=== PATIENT | male | born 1995 | race Native Hawaiian/Other Pacific Islander ===

== ENCOUNTER 2016-12-15 20:30 | Emergency (ER) | payer OTHER ==
[2016-12-15 20:38] VITALS: BP 147/85; RESP 18; TEMP 98.3; O2SAT 100
--- NOTE | 2016-12-16 00:15 | ED PDOC ---
Lower Extremity Pain/Injury Time Seen by Provider: 12/15/16 21:27 Chief Complaint (Nursing): Lower Extremity Problem/Injury Chief Complaint (Provider): knee pain Additional Complaint(s): pt arrives for eval of right knee pain x1 week. Pt states he injured knee approximately one week ago and was seen in urgent care; told to f/u with ortho specialist; has not done so. Past Medical History Reviewed: Historical Data, Nursing Documentation, Vital Signs Vital Signs: Last Vital Signs Temp 98.3 F 12/15/16 20:35 Pulse 99 H 12/15/16 20:35 Resp 18 12/15/16 20:35 BP 147/85 12/15/16 20:35 Pulse Ox 100 12/15/16 20:35 - Medical History PMH: No Chronic Diseases - Family History Family History: States: No Known Family Hx - Social History Current smoker - smoking cessation education provided: No Alcohol: None Drugs: Denies - Allergies Allergies/Adverse Reactions: Allergies Allergy/AdvReac Type Severity Reaction Status Date / Time No Known Allergies Allergy Verified 12/15/16 20:35 Review of Systems ROS Statement: Except As Marked, All Systems Reviewed And Found Negative Musculoskeletal: Positive for: Leg Pain Physical Exam - Reviewed Nursing Documentation Reviewed: Yes Vital Signs Reviewed: Yes - Physical Exam Appears: Positive for: Well, Non-toxic, No Acute Distress Skin: Positive for: Normal Color, Warm, DRY Extremity: Positive for: Other (R knee nontender. painful ROM at 170, 100. no errythema, warmth, effusion, laxity. n/v intact distally. ambulates w/ pain. ) Neurologic/Psych: Positive for: Alert, Oriented. Negative for: Motor/Sensory Deficits - ECG O2 Sat by Pulse Oximetry: 100 Medical Decision Making Medical Decision Making: pt to f/u ortho as planned. Disposition - Clinical Impression Clinical Impression: Knee sprain - Patient ED Disposition Is Patient to be Admitted: No - Disposition Referrals: [facility] [Outside] Disposition: Routine/Home Disposition Time: 00:15 Condition: GOOD Additional Instructions: f/u ortho as planned. Instructions: Knee Sprain (ED)
[2016-12-16 00:45] VITALS: PULSE 81
== END 2016-12-15 23:44 | disposition home or self-care (01) ==
LOC: H.ER 20:30
DX: M25.561 Pain in right knee (principal)